=== PATIENT | male | born 1985 | race Caucasian/White ===

== ENCOUNTER 2017-08-19 06:03 | Emergency (ER) | payer OTHER ==
[2017-08-19] MEDS: FLUORESCEIN OPHTH 1 MG STRIP OU (06:45)
[2017-08-19] MEDS: TETRACAINE 0.5% OPHTH SOLN 4ML OS (06:45)
[2017-08-19] MEDS: ERYTHROMYCIN OPHTH OINT OD (07:30)
[2017-08-19] MEDS: ADACEL/BOOSTRIX VACCINE (DIPHTH/PERTUSS/ACELL/TETANUS)0.5ML SYR (90715) IM (07:30)
== END 2017-08-19 08:01 | disposition home or self-care (01) ==
LOC: M ED 06:03
DX: S05.01XA Injury of conjunctiva and corneal abrasion without foreign body, right eye, initial encounter (principal); X58.XXXA Exposure to other specified factors, initial encounter; Y92.9 Unspecified place or not applicable; Y93.89 Activity, other specified; Y99.0 Civilian activity done for income or pay
CPT/HCPCS: 90715

== ENCOUNTER 2019-04-30 09:39 | Emergency (ER) | payer OTHER ==
[~2019-04-30] VITALS: Ht 170.2 cm; Wt 100.6 kg
[~2019-04-30 09:39] MED LIST: ERYTOIN8 OD
[2019-04-30] MEDS ORDERED: OMEP-221 OR (09:47)
[2019-04-30] MEDS ORDERED: NS 1,000 ML IV SCH (10:00)
[2019-04-30 11:30] VITALS: BP 121/70
--- NOTE | 2019-05-01 19:24 | ER ---
DATE OF CONSULTATION: 04/30/2019 HISTORY: The patient is a 33-year-old man who reports that several weeks ago he had an episode of severe right upper quadrant pain. This occurred late in the evening, and he took a sleeping aid and went to bed and was able to sleep through it and when he awakened in the morning, the pain had remitted. Then, last night he noted the onset again of severe right upper quadrant pain with some associated nausea. This began perhaps 3 o'clock in the morning, and he presented at about 4 o'clock in the morning, or shortly thereafter, to the emergency department at [facility]. He was evaluated with blood work and then had a CT scan. His labs were largely unremarkable, but the CT scan suggested some mild wall thickening of the gallbladder with gallstones. He was felt to have acute cholecystitis and was transferred by ambulance to [facility] for my evaluation. MEDICATIONS: The only medication reported is some omeprazole for reflux. ALLERGIES: He has no known medication allergies. SURGICAL HISTORY: Significant only for some dental surgery for removal of his lower teeth. MEDICAL HISTORY: He does have some gastroesophageal reflux. SOCIAL HISTORY: He is a current every day smoker of tobacco products. He uses alcohol occasionally. FAMILY HISTORY: Shows no significant heritable medical conditions. Social history is as noted previously. REVIEW OF SYSTEMS: Revealed no history of seizure or stroke. He has no heart, lung or abdominal complaints normally. He has had no dysuria, hematuria or kidney stones. He has no bone or joint issues. There is no history of deep vein thrombosis (DVT) or pulmonary embolus. PHYSICAL EXAM: Reveals a pleasant young man lying quietly on the hospital stretcher. He looks quite comfortable. He is mildly to moderately obese. He is alert and responsive. Skin: Warm and dry. Sclerae are anicteric. Mucous membranes are moist. The neck is supple. Heart exam shows a regular rhythm. The lungs are clear. The abdomen is obese. He has no scars evident. There is no hernia evident. He has active bowel sounds. The abdomen is soft and nontender. Extremities are without edema. Laboratory studies from the [facility] show a normal white blood cell count without a left shift, and his chemistries are without significant abnormalities. His liver function tests are normal. CT scan images were sent on a disc, and I reviewed these personally. He has at least one moderate size stone in the gallbladder near the gallbladder neck. On the images, there may be some very slight thickening of the gallbladder wall, but I do not see any pericholecystic fluid. ' IMPRESSION: Biliary colic currently without any strong evidence for acute cholecystitis. He reports that his pain has resolved, and he has no tenderness on exam currently. His labs were normal at [facility] earlier today. He has definite stones by CT scan, but the gallbladder wall thickening was, I think, minimal at most. RECOMMENDATIONS: At this point, I do not believe the patient needs to be admitted for further care. I counseled him that he have gallstones and that these cause pain called biliary colic by temporarily plugging up the flow of bile out of the gallbladder. Some people will go on to develop a complete obstruction that lasts, which causes persistent pain with inflammation of the gallbladder called acute cholecystitis. I do think it would be prudent for him to have a cholecystectomy. I have recommended that he follow up in my office on an outpatient basis to arrange for surgery for a cholecystectomy. I briefly described the nature of a laparoscopic cholecystectomy to him. He is agreeable with this plan to follow up in the office.
== END 2019-04-30 11:41 | disposition home or self-care (01) ==
LOC: M ED 09:39 → EDBD 09:39 → M ED 11:41
DX: K80.51 Calculus of bile duct without cholangitis or cholecystitis with obstruction (principal); K21.9 Gastro-esophageal reflux disease without esophagitis; F17.200 Nicotine dependence, unspecified, uncomplicated; Z79.899 Other long term (current) drug therapy; Z87.19 Personal history of other diseases of the digestive system

== ENCOUNTER 2019-05-23 07:40 | Day surgery (SDC) | payer OTHER ==
[~2019-05-23] VITALS: Ht 167.6 cm; Wt 97.0 kg
[~2019-05-23 07:40] MED LIST changes: +LIDOCAINE 1% MDV 20ML VIAL SQ PRN; +LR 1,000 ML IV ONE; +OMEP-221 OR
[2019-05-23] MEDS ORDERED: BUPIVACAINE HCL 0.25% 30 ML VIAL As Ordered ONE (09:02)
[2019-05-23] MEDS ORDERED: fentaNYL 250 MCG/5 ML INJECTION (J3010) As Ordered ONE (09:34)
[2019-05-23] MEDS ORDERED: KETOROLAC 60 MG/2 ML VIAL (J1885) As Ordered ONE (09:34)
[2019-05-23] MEDS ORDERED: ONDANSETRON 4MG/2ML VIAL (J2405) As Ordered ONE (09:34)
[2019-05-23] MEDS ORDERED: ROCURONIUM BROMIDE 50 MG/5 ML VIAL As Ordered ONE (09:34)
[2019-05-23] MEDS ORDERED: ACETAMINOPHEN 1000MG 100ML IV BTL (OFIRMEV) (J0131 PER 10MG) As Ordered ONE (09:34)
[2019-05-23] MEDS ORDERED: propofoL 200 MG/20 ML VIAL As Ordered ONE (09:34)
[2019-05-23] MEDS ORDERED: dexameTHASONE 4 MG/ML 1ML VIAL (J1100) As Ordered ONE (09:34)
[2019-05-23] MEDS ORDERED: METOCLOPRAMIDE INJ 10MG/2ML VIAL (J2765) As Ordered ONE (09:34)
[2019-05-23] MEDS ORDERED: MIDAZOLAM INJ 2 MG/2 ML VIAL (J2250) As Ordered ONE (09:34)
[2019-05-23] MEDS ORDERED: LIDOCAINE 2% INJ 100 MG/5 ML SDV (FOR ANES.) As Ordered ONE (09:34)
[2019-05-23] MEDS ORDERED: SUGAMMADEX SODIUM 500 MG/5 ML VIAL (BRIDION) As Ordered ONE (09:34)
[2019-05-23] MEDS ORDERED: PERCOCET 5MG/325MG TAB As Ordered ONE ×2 (11:22→12:43)
[2019-05-23] MEDS ORDERED: fentaNYL 100 MCG/2 ML INJECTION (J3010) As Ordered ONE (11:22)
[2019-05-23] MEDS: fentaNYL 100 MCG/2 ML INJECTION (J3010) IV PRN ×3 (11:23→11:36)
[2019-05-23] MEDS: PERCOCET 5MG/325MG TAB PO PRN ×2 (11:24→12:45)
[2019-05-23] MEDS ORDERED: MORPHINE 2 MG/ML 1ML VIAL (J2270) IV PRN (11:30)
[2019-05-23] MEDS ORDERED: ONDANSETRON 4MG/2ML VIAL (J2405) IV PRN (11:30)
[2019-05-23] MEDS ORDERED: LR 1,000 ML IV SCH (11:30)
[2019-05-23] MEDS ORDERED: ACETAMINOPHEN TAB 650MG DOSE (2X325MG) PO PRN (11:45)
[2019-05-23] MEDS ORDERED: NORCO, ANEXSIA 5/325MG TABLET (HYDROcodone/ACETAMINOPHEN) PO PRN (12:00)
[2019-05-23] MEDS ORDERED: IBUPROFEN 600 MG TAB PO PRN (12:00)
[2019-05-23] MEDS ORDERED: HYDR-3715 PO (12:15)
[2019-05-23 13:30] VITALS: BP 129/72
--- NOTE | 2019-05-23 16:27 | RO ---
DATE OF PROCEDURE: 05/23/2019 PREOPERATIVE DIAGNOSIS: Symptomatic gallstones. POSTOPERATIVE DIAGNOSIS: Cholelithiasis with chronic cholecystitis. OPERATIVE PROCEDURE: Laparoscopic cholecystectomy with lysis of adhesions. SURGEON: Dr. Scout Craig. ANESTHESIA: General. INDICATIONS FOR PROCEDURE Patient is a 33-year-old man who had developed a episode of severe abdominal pain recently. He was seen at [facility] where he underwent imaging that showed a gallstone in the neck of the gallbladder and a suggestion of some gallbladder wall thickening. He was transferred to [facility] but by the time of his arrival his pain had essentially resolved. He was discharged to follow up for subsequent cholecystectomy and he presents today for that surgery. OPERATIVE PROCEDURE The patient was brought to the operating room and placed on the table in a supine position. He was placed under general endotracheal anesthesia. The patient's abdomen was prepped and draped in a sterile fashion. 0.25% Marcaine was infiltrated at each of the trocar sites as needed. A short supraumbilical midline incision was made and deepened to the fascia. A Veress needle was inserted and after positive hanging drop test, the abdomen was inflated with carbon dioxide gas. The midline fascia was scored and an 11 mm port was placed without difficulty. The laparoscope was inserted. Initial examination showed a normal-appearing liver. Visualized portions of the stomach and small and large bowel appeared normal. The gallbladder was partially hidden by adhesions to the omentum. The patient was tilted to a reverse Trendelenburg position and rolled to the left slightly. Two 5 mm ports were placed in the right upper quadrant and a third was placed in the left upper quadrant. Graspers were inserted. The fundus of the gallbladder was grasped and elevated and the fairly extensive adhesions of the surrounding omentum to the gallbladder were taken down using cautery dissection. The gallbladder was then (cut off). There were adhesions of the area of the gallbladder neck completely encasing this area and this was dissected free from surrounding tissues. The patient was found to have a fairly large stone which appeared to be stuck in the neck of the gallbladder. The findings overall were felt to be consistent with some prior acute cholecystitis, now resolved. With further dissection, the cholecystic artery was clearly identified approaching the medial wall of the gallbladder and this was doubly clipped with hemoclips and divided. The cystic duct was then clearly identified and also dissected free and doubly clipped and divided. The gallbladder was then dissected free from the gallbladder bed. The gallbladder was not perforated in the course of dissection. The gallbladder was placed in an Endopouch. The right upper quadrant was irrigated. Several small bleeding points on the gallbladder bed were controlled with cautery. The area was reirrigated and inspected and there was no evidence of any bleeding or bile leak. The patient was returned to a flat position. The abdomen was deflated and the trocars were removed. The gallbladder was recovered through the supraumbilical site. In order to deliver the stone it was necessary to extend the fascial incision slightly. The gallbladder was then sent for permanent pathology. The fascia at the supraumbilical site was closed with interrupted simple sutures of #2-0 Vicryl. The skin incisions were all closed with buried #4-0 Vicryl and Steri-Strips. Light dressings were applied. The patient tolerated the procedure well without apparent complication. He was awakened in the operating room, extubated and moved to the recovery room in stable condition.
== END 2019-05-23 13:50 | disposition home or self-care (01) ==
LOC: M SDC 07:40
PROVIDERS: ATTEND Surgery
DX: K80.10 Calculus of gallbladder with chronic cholecystitis without obstruction (principal); K21.9 Gastro-esophageal reflux disease without esophagitis; J45.909 Unspecified asthma, uncomplicated; Z79.899 Other long term (current) drug therapy; F17.218 Nicotine dependence, cigarettes, with other nicotine-induced disorders
CPT/HCPCS: 47562; 88304; J0131; J1100; J1885; J2250; J2405; J2765; J3010